=== PATIENT | male | born 2000 | race Two or more races ===

== ENCOUNTER 2019-10-27 21:24 | Emergency (ER) | payer SELFPAY ==
[~2019-10-27] VITALS: Ht 167.6 cm; Wt 70.3 kg
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
--- NOTE | 2019-10-27 21:55 | NUR ---
urine and blood collected. sent to lab
[2019-10-27 23:06] LABS: ALANINE AMINOTRANSFERASE 20 U/L (12-78); ALBUMIN 4.3 g/dL (3.4-5.0); ALKALINE PHOSPHATASE 139 U/L (46-116); ASPARTATE AMINOTRANSFERASE 22 U/L (15-37); BILIRUBIN,DIRECT 0.1 mg/dL (0.0-0.2); BILIRUBIN,TOTAL 0.4 mg/dL (0.2-1.0); CALCIUM, SERUM 8.9 mg/dL (8.5-10.1); CARBON DIOXIDE 24 mmol/L (21-32); CHLORIDE 107 mmol/L (98-107); CREATININE 0.9 mg/dL (0.6-1.3); GLUCOSE 108 mg/dL (74-106); POTASSIUM 3.4 mmol/L (3.5-5.1); SODIUM SERUM 145 mmol/L (136-145); TOTAL PROTEIN, SERUM 7.7 g/dL (6.4-8.2); UREA NITROGEN, BLOOD 9 mg/dL (7-18)
[2019-10-27 23:07] LABS: ALCOHOL, BLOOD < 3 mg/dL (0-0); SALICYLATE < 0.2 mg/dL (2.8-20.0)
[2019-10-27 23:08] LABS: ACETAMINOPHEN 0 ug/ml (10-30)
[2019-10-27 23:21] LABS: BASOPHILS # (AUTO) 0.1 /CMM (0.0-0.2); BASOPHILS % (AUTO) 0.9 % (0.0-2.0); EOSINOPHILS % (AUTO) 0.4 % (0.0-6.0); HEMATOCRIT 36 % (39-51); HEMOGLOBIN 11.5 g/dL (13.5-17.5); LYMPHOCYTES # (AUTO) 2.3 /CMM (0.8-4.8); LYMPHOCYTES % (AUTO) 35.9 % (20.0-44.0); MEAN CORPUSCULAR HGB CONC 32 g/dl (31.0-36.0); MEAN CORPUSCULAR VOLUME 83 fL (80-96); MONOCYTES # (AUTO) 0.3 /CMM (0.1-1.30); MONOCYTES % (AUTO) 5.3 % (2.0-12.0); NEUTROPHILS # (AUTO) 3.7 /CMM (1.8-8.9); NEUTROPHILS % (AUTO) 57.5 % (43.0-81.0); PLATELET COUNT (AUTO) 357 /CMM (150-450); RED BLOOD CELL COUNT(AUTO) 4.34 MIL/uL (4.5-6.0); WHITE BLOOD COUNT (AUTO) 6.4 K/uL (4.3-11.0)
--- NOTE | 2019-10-28 02:02 | NUR ---
PT RESTING COMFORTABLY IN BED. NAD NOTED. SITTER AT BEDSIDE FOR SAFETY. WILL MONITOR ACCORDINGLY
--- NOTE | 2019-10-28 02:18 | NUR ---
Pt ambulatory with a steady gait. Pt roadtested.
[2019-10-28 02:22] VITALS: BP 134/89
--- NOTE | 2019-10-28 02:22 | NUR ---
Patient discharged to home in stable condition. Written and verbal after care instructions given. Patient verbalizes understanding of instruction.IV removed. Catheter intact and site benign. Pressure and 4x4 applied to site. No bleeding noted.
== END 2019-10-28 02:23 | disposition home or self-care (01) ==
LOC: EDBD 21:26 → ER 21:26
DX: R41.82 Altered mental status, unspecified (principal); R46.1 Bizarre personal appearance; R45.1 Restlessness and agitation
CPT/HCPCS: 36415; 70450; 72125; 80048; 80076; 80305; 80307; 80329; 81001; 82140; 82962; 85025; 99285; G0480; L0172; 81000-TC

== ENCOUNTER 2019-10-29 23:01 | Emergency (ER) | payer MEDICAID ==
[~2019-10-29] VITALS: Ht 167.6 cm; Wt 54.4 kg
[2019-10-29 23:01] VITALS: BP 114/79
--- NOTE | 2019-10-30 00:05 | NUR ---
DR FRANCOIS AT THE BED SIDE
--- NOTE | 2019-10-30 00:20 | NUR ---
PT LEFT BEFORE RECEIVING AND SIGNING D/C PAPERS.
== END 2019-10-30 00:32 | disposition left against medical advice (07) ==
LOC: ER 23:03
DX: M79.18 Myalgia, other site (principal); M79.621 Pain in right upper arm; M79.622 Pain in left upper arm